=== PATIENT | male | born 1955 | race Caucasian/White ===

== ENCOUNTER 2016-11-25 10:21 | Emergency (ER) | payer MEDICAID ==
[~2016-11-25] VITALS: Ht 167.6 cm; Wt 71.7 kg
[2016-11-25] MEDS ORDERED: LIDOCAINE 1% HCL (LOCAL ANESTH.) INJ 20ML MDV ONE (11:56)
[2016-11-25 12:00] VITALS: BP 134/88
[2016-11-25] MEDS ORDERED: TETANUS-DIPTH-ACEL PERTUSSIS 0.5ML SYRG IM ONE (12:00)
[2016-11-25] MEDS ORDERED: cefTRIAXone SOD 1,000 MG VL ONE (12:48)
[2016-11-25] MEDS ORDERED: cefTRIAXone W LIDOCAINE 1 GM IM IM ONE (13:00)
[2016-11-25] MEDS ORDERED: LIDOCAINE 1% HCL (LOCAL ANESTH.) INJ 20ML MDV IN ONE (14:15)
== END 2016-11-25 14:09 | disposition home or self-care (01) ==
LOC: ER 10:21
DX: S71.112A Laceration without foreign body, left thigh, initial encounter (principal); Z88.0 Allergy status to penicillin; Z23 Encounter for immunization; W45.8XXA Other foreign body or object entering through skin, initial encounter; Y93.89 Activity, other specified; Y99.8 Other external cause status; Y92.098 Other place in other non-institutional residence as the place of occurrence of the external cause
CPT/HCPCS: 12034; 90471; 90715; 96372; 99284; J0696; J2001